=== PATIENT | male | born 1985 | race Two or more races ===

== ENCOUNTER 2019-02-21 13:09 | Emergency (ER) | payer MEDICAID ==
[~2019-02-21] VITALS: Ht 172.7 cm; Wt 80.0 kg
[2019-02-21] MEDS ORDERED: CefTRIAXone 250MG inj IM ONE (13:55)
--- NOTE | 2019-02-21 14:00 | NUR ---
PATIENT VERY MALODOROUS HAD RECENT UNPROTECTED SEX
[2019-02-21] MEDS ORDERED: DOXY100C43 PO (14:13)
[2019-02-21 14:26] LABS: CLARITY,URINE SLIGHTLY CLOUDY (Clear); COLOR,URINE YELLOW (Yellow); GLUCOSE, URINE NEGATIVE (Neg); KETONES,URINE TRACE mg/dl (Neg); LEUKOCYTE ESTERASE ,URINE NEGATIVE (Neg); NITRITES, URINE NEGATIVE (Neg); OCCULT BLOOD,URINE TRACE-INTACT (Neg); PROTEIN,URINE NEGATIVE (Neg); UA COLLECTION TYPE CLN CATCH MIDSTREAM; UROBILINOGEN,URINE 0.2 E.U/dL (0.2-1.0)
[2019-02-21 14:42] LABS: MUCUS STRANDS MANY /LPF (Neg)
[2019-02-21 14:43] LABS: SQUAMOUS EPITHELIAL CELL,UR FEW /LPF (FEW)
[2019-02-21 14:44] LABS: BACTERIA,URINE FEW /HPF (Neg); WBC,URINE 0-4 /HPF (0-4)
[2019-02-21] MEDS ORDERED: CefTRIAXone 250MG IM Kit w/LIDOcaine IM ONE (15:15)
[2019-02-21 15:36] VITALS: BP 131/62
[2019-02-22] MEDS ORDERED: NAPR-56 PO (21:50)
== END 2019-02-21 15:41 | disposition home or self-care (01) ==
LOC: ER 13:11
DX: Z20.2 Contact with and (suspected) exposure to infections with a predominantly sexual mode of transmission (principal); F10.99 Alcohol use, unspecified with unspecified alcohol-induced disorder; Z59.0 Homelessness; Z56.0 Unemployment, unspecified; Z79.899 Other long term (current) drug therapy; Y90.9 Presence of alcohol in blood, level not specified
CPT/HCPCS: 36415; 81001; 87491; 87591; 96372; 99283; J0696

== ENCOUNTER 2019-02-22 20:53 | Emergency (ER) | payer MEDICAID ==
[~2019-02-22] VITALS: Ht 172.7 cm; Wt 77.3 kg
[~2019-02-22 20:53] MED LIST: DOXY100C43 PO
[2019-02-22 21:03] VITALS: BP 121/76
[2019-02-22] MEDS ORDERED: naproxen 500mg tablet PO ONE (21:45)
[2019-02-22] MEDS ORDERED: NAPR-56 PO (21:50)
== END 2019-02-22 22:20 | disposition home or self-care (01) ==
LOC: ER 20:54
DX: R22.32 Localized swelling, mass and lump, left upper limb (principal); M79.602 Pain in left arm; Z59.0 Homelessness; Z56.0 Unemployment, unspecified; X50.1XXA Overexertion from prolonged static or awkward postures, initial encounter; Y93.61 Activity, american tackle football; Y92.89 Other specified places as the place of occurrence of the external cause; Y99.9 Unspecified external cause status
CPT/HCPCS: 29125; 73090; 99283